=== PATIENT | female | born 1940 | race Caucasian/White ===

== ENCOUNTER → 2017-03-18 | Outpatient (CLI) | payer OTHER ==
[2013-02-11 11:57] VITALS: BP 138/89
--- NOTE | 2017-03-18 14:03 | MG ---
HISTORY: Left breast carcinoma status post mastectomy, no current complaints Right breast digital diagnostic mammography with CAD. Comparison: March 05, 2015 and March 24, 2016 FINDINGS: Cc, MLO, and mL projections of the right breast were obtained. Heterogeneously dense fibroglandular tissue is seen to be present without significant interval change. No suspicious architectural distor tion, mass or clustered microcalcifications can be observed to suggest malignancy. No skin thickenin g or nipple retraction is appreciated. No pathological lymphadenopathy can be identified. Benign-ap pearing calcifications are noted. IMPRESSION: NO RADIOGRAPHIC EVIDENCE OF MALIGNANCY. ACR CATEGORY 2 - benign findings. FOLLOW-UP EXAM 1 YEAR. Diagnostic CAD was utilized and reviewed. * 0 (ZERO) - ASSESSMENT INCOMPLETE; ADDITIONAL IMAGING IS NEEDED. * 1/1 (ONE) - NEGATIVE. * 2/II (TWO) - BENIGN FINDINGS. * 3/III (THREE) - PROBABLY BENIGN FINDING; SHORT INTERVAL FOLLOW-UP SUGGESTED. * 4/IV (FOUR) - SUSPICIOUS ABNORMALITY; BIOPSY SHOULD BE CONSIDERED. * 5/V - HIGHLY SUSPICIOUS OF MALIGNANCY; BIOPSY SHOULD BE PERFORMED. A NEGATIVE X-RAY REPORT SHOULD NOT DELAY BIOPSY IF A DOMINANT OR CLINICALLY SUSPICIOUS MASS IS PRESENT; 4 TO 8 PERCENT OF CANCERS ARE NOT IDENTIFIED BY X-RAY. A NEGA TIVE REPORT MAY REINFORCE THE CLINICAL IMPRESSION. ADENOSIS AND DENSE BREASTS MAY OBSCURE AN UNDERLY ING NEOPLASM. Reported By:
== END ==
LOC: RAD 13:14
PROVIDERS: ATTEND Nurse Practitioner Family
DX: Z85.3 Personal history of malignant neoplasm of breast (principal); Z79.811 Long term (current) use of aromatase inhibitors
CPT/HCPCS: 77065

== ENCOUNTER 2025-04-11 15:11 | Inpatient (IN) ==
--- NOTE | 2025-04-11 15:22 | EKG ---
Test Reason : elevated hr Blood Pressure : */* mmHG Vent. Rate : 154 BPM Atrial Rate : * BPM P-R Int : * ms QRS Dur : 94 ms QT Int : 280 ms P-R-T Axes : * 25 8 degrees QTc Int : 448 ms Atrial fibrillation with rapid ventricular response with premature ventricular or aberrantly conducted complexes Nonspecific ST and T wave abnormality Abnormal ECG No previous ECGs available Confirmed by Miguel Fields MD ([id number]) on 04/11/2025 5:15:39 PM Referred By: Confirmed By: Miguel Fields MD
[2025-04-11 15:27] VITALS: BMI 28.6
[2025-04-11] MEDS: CARDIZEM INJ 50 MG VIAL IVP ONE (15:37)
[2025-04-11] MEDS: NS 1,000 ML IV 1,000 ML IV ONE (15:37)
[2025-04-11 15:49] LABS: INR 1.21 (0.8-1.3)
[2025-04-11 15:56] LABS: COR CA(FOR HYPOALB) 9.9 mg/dL (8.5-10.1); COR NA(FOR HYPERGLY) 144.0 mmol/L (136-145); CREATININE 1.22 mg/dL (0.55-1.02); eGFR NON BLACK RACES 45.0 (>60)
--- NOTE | 2025-04-11 15:59 | DR.DIZZY ---
HPI Time seen Time Seen by Provider: 04/11/25 15:17 PCP Primary Care Physician: Melissa Peña NP Complaint Chief Complaint Doctor Comments: 84 yo F, recent surgery on R hip, went to rehab, discharged home last wk, has become increasingly weak at home, unable to get around her house to take care of her self. Lives alone. Found by EMS to have afib with RVR, with HR of 150 bpm. Pt denies cp or palpitations, only complains of weakness and fatigue. Chief Complaint:: EMS was called to patient for weakness and having trouble to get around the house. Patient c/o BLE edema and pain. COVID-19 Coronavirus risk:travel/contact w/high risk person: No Has patient experienced Coronavirus symptoms: No Source History Provided: Patient and EMS Mode of Arrival Mode of Arrival: Ambulatory Timing Onset of Chief Complaint: 04/11/25 Context Stroke Symptoms: None PMH PMH Past Medical History: Yes Past Medical History: Arthritis, Coronary Artery Disease, Hypertension and [place] Past Surgical History: Yes Surgical History: Mastectomy and Tonsillectomy Past Surgical History Comment: varicose veins, bilateral cataracts, breast biopsy, foot operation, left mastectomy Family History History of Family Medical Conditions: Yes Family Medical History: Diabetes Mellitus, Cancer, [place], Coronary Artery Disease and Hypertension Social History Alcohol Use: Occasionally Do you use any recreational Drugs:: No Lives With: Alone Lives Where: Home Travel Risk Coronavirus risk:travel/contact w/high risk person: No Has patient experienced Coronavirus symptoms: No Infectious screening Have you traveled outside the country in the last 6 months?: No Isolation: Standard ROS Review of Systems Constitutional: Malaise and Fatigue All Other Systems: Reviewed and Negative PE Vital Signs Vitals: Vital Signs Temperature 98.1 F Pulse Rate 89 Pulse Rate 92 Pulse Rate 90 Pulse Rate 91 Pulse Rate 89 Pulse Rate 92 Pulse Rate 94 Pulse Rate 93 Pulse Rate 92 Pulse Rate 94 Pulse Rate 93 Pulse Rate 94 Pulse Rate 94 Pulse Rate 93 Pulse Rate 96 Pulse Rate 95 Pulse Rate 93 Pulse Rate 98 Pulse Rate 98 Pulse Rate 168 Pulse Rate 158 Pulse Rate 162 Pulse Rate 160 Pulse Rate 104 Respiratory Rate 22 Respiratory Rate 31 Respiratory Rate 19 Respiratory Rate 14 Respiratory Rate 22 Respiratory Rate 20 Respiratory Rate 23 Respiratory Rate 30 Respiratory Rate 25 Respiratory Rate 24 Respiratory Rate 35 Respiratory Rate 18 Respiratory Rate 21 Respiratory Rate 24 Respiratory Rate 25 Respiratory Rate 26 Respiratory Rate 22 Respiratory Rate 29 Respiratory Rate 28 Respiratory Rate 20 Blood Pressure 121/65 Blood Pressure 127/60 Blood Pressure 122/58 Blood Pressure 137/60 Blood Pressure 123/58 Blood Pressure 113/56 Blood Pressure 107/56 Blood Pressure 111/73 Blood Pressure 120/68 Blood Pressure 120/68 O2 Sat by Pulse Oximetry 98 O2 Sat by Pulse Oximetry 94 O2 Sat by Pulse Oximetry 97 O2 Sat by Pulse Oximetry 97 O2 Sat by Pulse Oximetry 96 O2 Sat by Pulse Oximetry 97 O2 Sat by Pulse Oximetry 99 O2 Sat by Pulse Oximetry 98 O2 Sat by Pulse Oximetry 97 O2 Sat by Pulse Oximetry 98 O2 Sat by Pulse Oximetry 99 O2 Sat by Pulse Oximetry 98 O2 Sat by Pulse Oximetry 91 O2 Sat by Pulse Oximetry 98 O2 Sat by Pulse Oximetry 97 O2 Sat by Pulse Oximetry 97 O2 Sat by Pulse Oximetry 96 O2 Sat by Pulse Oximetry 95 O2 Sat by Pulse Oximetry 98 O2 Sat by Pulse Oximetry 98 General Limitations: Other (unkempt, evidence of urinary and fecal incont. Cat hair diffusely on pt. ) Head Head Exam: Normal Inspection Eyes Eye exam: Normal Appearance ENT ENT Exam: Normal Exam, Normal Oropharynx and Normal External Ear Exam Neck Neck Exam: Normal Inspection and Full ROM Chest Chest Inspection: Normal Inspection Respiratory Respiratory Exam: Normal Lung Sounds Bilat Cardiovascular Cardiovascular Exam: Tachycardia, Irregular Rhythm and Other (afib with RVR, rate 150-170 bpm) Abdominal Exam Abdominal Exam: Normal Inspection, Normal Bowel Sounds and Soft Rectal Rectal Exam: Deferred Extremeties Extremities Exam: Normal Inspection and Full ROM Back Back Exam: Normal Inspection and Full ROM Neurologic Neurological Exam: Alert and Oriented X3 Psychiatric Psychiatric Exam: Normal Affect and Normal Mood Skin Skin Exam: Warm, Dry, Intact and Normal Color ROR Labs Reviewed 04/11/25 15:27 04/11/25 15:27 Laboratory: WBC 19.0 X10^3/uL (3.6-10.0) H 04/11/25 15:27 RBC 3.82 X10^6/uL (3.5-5.4) 04/11/25 15:27 Hgb 12.1 g/dL (12.0-16.0) 04/11/25 15:27 Hct 36.0 % (36.0-47.0) 04/11/25 15:27 MCV 94.2 fL (80.0-100.0) 04/11/25 15: MCH 31.6 pg (27.0-34.0) 04/11/25 15: MCHC 33.5 g/dL (33.0-35.0) 04/11/25 15: RDW 14.9 % (11.6-16.5) 04/11/25 15: Plt Count 151 X10^3/uL (150.0-450.0) 04/11/25 15: MPV 10.1 fL (7.4-11.0) 04/11/25 15: Neut % (Auto) 86.8 % (42.0-75.0) H 04/11/25 15: Lymph % (Auto) 5.1 % (21.0-51.0) L 04/11/25 15: [place] % (Auto) 7.8 % (0.0-13.0) 04/11/25 15: Eos % (Auto) 0.1 % (0.9-2.9) L 04/11/25 15: Baso % (Auto) 0.2 % (0.2-1.0) 04/11/25 15:27 Neut # (Auto) 16.5 x10^3/uL (2.2-4.8) H 04/11/25 15: Lymph # (Auto) 1.0 X10^3/uL (1.3-2.9) L 04/11/25 15:27 [place] # (Auto) 1.5 x10^3/uL (0.3-0.8) H 04/11/25 15: Eos # (Auto) 0.0 x10^3/uL (0.0-0.2) 04/11/25 15:27 Baso # (Auto) 0.0 X10^3/uL (0.0-0.1) 04/11/25 15: Absolute Nucleated RBC 0.1 /100WBC 04/11/25 15: PT 15.4 SECONDS (11.8-14.3) 04/11/25 15: INR Target Range - 04/11/25 15: INR 1.21 (0.8-1.3) 04/11/25 15: APTT 29.4 SECONDS (22.9-36.5) 04/11/25 15:27 PTT Comment - 04/11/25 15:27 Sodium 143 mmol/L (136-145) 04/11/25 15:27 Corrected Sodium 144 mmol/L (136-145) 04/11/25 15:27 Potassium 3.5 mmol/L (3.5-5.1) 04/11/25 15: Chloride 107 mmol/L (98-107) 04/11/25 15: Carbon Dioxide 25.2 mmol/L (21-32) 04/11/25 15:27 BUN 26 mg/dL (7-18) H 04/11/25 15: Creatinine 1.22 mg/dL (0.55-1.02) H 04/11/25 15:27 Est GFR (MDRD) Af Amer 54 (>60) L 04/11/25 15:27 Est GFR (MDRD) Non-Af 45 (>60) L 04/11/25 15: Glucose 125 mg/dL (65-99) H 04/11/25 15:27 Calcium 8.5 mg/dL (8.5-10.1) 04/11/25 15:27 Corrected Calcium 9.9 mg/dL (8.5-10.1) 04/11/25 15: Magnesium 1.8 mg/dL (2.0-2.9) L 04/11/25 15: Total Bilirubin 1.70 mg/dL (0.2-1.0) H 04/11/25 15:27 AST 18 Units/L (15-37) 04/11/25 15:27 ALT 10 Units/L (12-78) L 04/11/25 15:27 Alkaline Phosphatase 204 Units/L (46-116) H 04/11/25 15:27 Creatine Kinase 47 Units/L (26-192) 04/11/25 15:27 Troponin I High Sens 26.4 ng/L (4.0-60.0) 04/11/25 15: B-Natriuretic Peptide 157 pg/mL (0-79) H 04/11/25 15:27 Total Protein 6.0 g/dL (6.4-8.2) L 04/11/25 15:27 Albumin 2.3 g/dL (3.4-5.0) L 04/11/25 15:27 Globulin 3.7 g/dL (2.5-4.5) 04/11/25 15: Albumin/Globulin Ratio 0.6 Ratio (1.1-2.1) L 04/11/25 15:27 Specimen Type Clean catch urine 04/11/25 18:02 Urine Color Dark yellow (YELLOW) 04/11/25 18:02 Urine Appearance Hazy (CLEAR) 04/11/25 18:02 Urine pH 5.0 (5.0 - 8.0) 04/11/25 18:02 Ur Specific [place] 1.025 (1.000-1.030) 04/11/25 18: Urine Protein 2+ (NEGATIVE) 04/11/25 18: Urine Glucose (UA) Negative (NEGATIVE) 04/11/25 18: Urine Ketones 1+ (NEGATIVE) 04/11/25 18:02 Urine Blood 1+ (NEGATIVE) 04/11/25 18: Urine Nitrite Negative (NEGATIVE) 04/11/25 18: Urine Bilirubin 1+ (NEGATIVE) 04/11/25 18:02 Urine Urobilinogen 2+ (NORMAL) 04/11/25 18:02 Ur Leukocyte Esterase 2+ (NEGATIVE) 04/11/25 18:02 Urine RBC 5-10 /HPF (0-3) A 04/11/25 18:02 Urine WBC 5-10 /HPF (0-5) A 04/11/25 18:02 Ur Squamous Epith Cells Few /HPF (NEGATIVE) 04/11/25 18:02 Amorphous Sediment 1+ /HPF (NEGATIVE) 04/11/25 18:02 Urine Bacteria Trace /HPF (NEGATIVE) 04/11/25 18:02 Ur Culture Indicated? Yes/culture set up 04/11/25 18:02 Opioid Opioid Risk Tool Age (Adonis box if 16-45): No History of Preadolescent Sexual Abuse: No Total: 0 Total Score Risk Category: Low Risk Copyright: Caleb ROUSE predicting aberrant behaviors Discharge Plan Diagnosis Discharge Problem: Atrial fibrillation, new onset, Atrial fibrillation with rapid ventricular response, Acute UTI, Adult failure to thrive Discharge Plan Patient Disposition: 09 ADMITTED INPATIENT Condition: Stable Prescriptions: No Action losartan 25 mg tablet 25 mg PO QDAY Qty: 30 3RF famotidine 20 mg Tablet 20 mg PO BID metoprolol succinate 25 mg Tablet Extended Release 24 Hr 25 mg PO QDAY celecoxib 100 mg capsule 100 mg PO QDAY Health Concerns: Post Hospitalization: new medications and changes needed to prevent readmission or further decline. Pt educated and given instructions on all concerns. Plan of Treatment: Continue with present treatment and follow up plan. Pt is to keep follow up appointment as instructed and take medications as ordered. Orders to Discharge Patient Discharge Orders: Transfer (Routine); Ordered 04/11/25 Ordered By: Anand Sosa Follow ups/Referrals Follow ups/Referrals: IVONNE LUEVANO [Primary Care Provider, MEDICAL] - 3 days Instructions Stand Alone Forms: Find Help Web Site, Post Hospital Follow Up Care Print Language: FILIPINO
[2025-04-11 16:07] LABS: MEAN PLATELET VOLUME 10.1 fL (7.4-11.0); RED CELL DISTRIBUTION WIDTH 14.9 % (11.6-16.5)
--- NOTE | 2025-04-11 16:15 | RAD ---
EXAM: CHEST, 1 VIEW HISTORY: Shortness of Breath; COMPARISON: No relevant prior studies were available for comparison at the time of interpretation. TECHNIQUE: CHEST, 1 VIEW FINDINGS: Chest: Lines and tubes: Cardiac leads overlie the chest. Mediastinum: Cardiomegaly. Pulmonary vessels: There is pulmonary vascular congestion. Lung maldonado: No suspicious airspace opacity. Pleura: No effusion. No pneumothorax. Bones and soft tissues: No acute osseous or soft tissue abnormality. IMPRESSION: 1. Increased volume status THIS IS AN ELECTRONICALLY VERIFIED FINAL REPORT 04/11/2025 4:03 PM - Electronically signed by Steve Johnson MD
[2025-04-11] MEDS: CORDARONE INJ 150 MG VIAL IVP ONE (16:18)
[2025-04-11 18:08] LABS: BLOOD/HEMOGLOBIN,URINE 1+ (NEGATIVE); LEUKOCYTE ESTERASE ,URINE 2+ (NEGATIVE); NITRITES,URINE NEGATIVE (NEGATIVE)
[2025-04-11 18:11] LABS: APPEARANCE,URINE HAZY (CLEAR)
[2025-04-11 18:15] LABS: SQUAMOUS EPITHELIAL CELL,UR FEW /HPF (NEGATIVE)
[2025-04-11] MEDS: ROCEPHIN VIAL 1 GRAM 1 G in NS 100 ML IV 100 ML IV ONE (19:40)
[2025-04-11] MEDS: CARDIZEM INJ 125 MG VIAL 125 MG in NS 100 ML IV 100 ML IV PRN (19:55)
[2025-04-11] MEDS ORDERED: TYLENOL 325 MG TAB PO PRN (20:39)
[2025-04-11] MEDS ORDERED: ZOFRAN TAB 4 MG PO PRN (20:39)
[2025-04-11] MEDS ORDERED: MORPHINE SULFATE INJ 2 MG INJ IVP PRN (20:39)
[2025-04-11] MEDS: CARDIZEM INJ 50 MG VIAL ONE (20:41)
[2025-04-11] MEDS: CARDIZEM INJ 125 MG VIAL ONE (20:42)
[2025-04-11] MEDS: NS 1,000 ML IV 1,000 ML ONE (20:42)
[2025-04-11] MEDS: NS 100 ML IV 100 ML ONE (20:42)
[2025-04-11] MEDS: CONSULT PHARMACY - POTASSIUM & MAGNESIUM XX SCH (21:59)
[2025-04-11] MEDS: NS 1,000 ML IV 1,000 ML IV SCH (22:12)
[2025-04-11] MEDS: PEPCID TAB 20 MG PO SCH (22:12)
[2025-04-11] MEDS: ELIQUIS PO SCH (22:13)
[2025-04-11] MEDS: K-DUR TAB 20 MEQ PO SCH (22:13)
[2025-04-11] MEDS: MAG-OX TAB PO SCH (22:13)
[2025-04-11] MEDS: ZOFRAN INJ 4 MG VIAL IVP PRN (22:22)
[2025-04-12 05:07] LABS: MEAN PLATELET VOLUME 9.3 fL (7.4-11.0); RED CELL DISTRIBUTION WIDTH 14.7 % (11.6-16.5)
[2025-04-12 05:20] LABS: COR CA(FOR HYPOALB) 9.7 mg/dL (8.5-10.1); CREATININE 0.93 mg/dL (0.55-1.02); eGFR NON BLACK RACES > 60 (>60)
[2025-04-12] MEDS: ULTRAM PO PRN (06:55)
[2025-04-12] MEDS: CONSULT PHARMACY - POTASSIUM & MAGNESIUM XX SCH (08:36)
[2025-04-12] MEDS ORDERED: CELEBREX PO SCH (09:00)
[2025-04-12] MEDS ORDERED: PATIENT'S HOME MEDICATION (Losartan 25 mg tablet) PO SCH (09:00)
[2025-04-12] MEDS: COLACE CAP 100 MG PO SCH (09:47)
[2025-04-12] MEDS: TOPROL XL PO SCH (09:47)
[2025-04-12] MEDS: K-DUR TAB 20 MEQ PO SCH (09:47)
[2025-04-12] MEDS: COZAAR PO SCH (09:47)
[2025-04-12] MEDS: MAG-OX TAB PO SCH (09:47)
[2025-04-12] MEDS: ROCEPHIN VIAL 1 GRAM 1 G in NS 100 ML IV 100 ML IV SCH (09:48)
[2025-04-12] MEDS: LASIX IVP ONE (09:48)
[2025-04-12] MEDS: NS 100 ML IV 100 ML ONE (10:26)
--- NOTE | 2025-04-12 12:39 | DR.CONSULT ---
CONSULT Consultation for Day of: Date: 04/12/25 Chief Complaint Chief Complaint: fatigue/weak Allergies Allergies Allergy/AdvReac Type Severity Reaction Status Date / Time Latex, Natural Rubber AdvReac Verified 04/11/25 15:16 History of Present Illness History of Present Illness: 84 yo female- recent hip surgery- was weak at home- came to ER: rafib- given iv amio and iv cardizem and converted( was on BB chronically)- now in nsr- still fels weak- home alone Past Medical History Past Medical History: Arthritis, Coronary Artery Disease, Hypertension and [place] Past Surgical History Surgical History: Mastectomy, Ortho Surgery, Tonsillectomy and Other Family History Family Medical History: Diabetes Mellitus, Cancer, [place], Coronary Artery Disease and Hypertension Social History Alcohol Use: Occasionally Drug Use: None Medications Home Medications: Latex, Natural Rubber Adverse Reaction (Verified 04/11/25 15:16) CONTINUE taking the following medications celecoxib 100 mg capsule 100 mg PO QDAY 04/11/25 [History] famotidine 20 mg tablet 20 mg PO BID 04/11/25 [History] metoprolol succinate 25 mg tablet,extended release 24 hr 25 mg PO QDAY 04/11/25 [History] Physical Exam Vital Signs: Vital Signs Temperature 98.1 F Pulse Rate 78 Pulse Rate 90 Pulse Rate 91 Pulse Rate 85 Pulse Rate 88 Pulse Rate 85 Pulse Rate 84 Pulse Rate 86 Respiratory Rate 24 Respiratory Rate 31 Respiratory Rate 32 Respiratory Rate 31 Respiratory Rate 28 Respiratory Rate 18 Respiratory Rate 25 Respiratory Rate 28 Blood Pressure 119/80 Blood Pressure 114/68 Blood Pressure 108/60 Blood Pressure 124/71 Blood Pressure 111/67 Blood Pressure 106/66 Blood Pressure 105/60 O2 Sat by Pulse Oximetry 95 O2 Sat by Pulse Oximetry 94 O2 Sat by Pulse Oximetry 97 O2 Sat by Pulse Oximetry 92 O2 Sat by Pulse Oximetry 93 O2 Sat by Pulse Oximetry 91 O2 Sat by Pulse Oximetry 92 alert ox3 nad clear lungs rrr 2/6 barry mild edema calves labs: hct 31 tsh 6/24 ok albumin 1.9 bnp 150 cxr: increased volume echo: lvh/good lv/ mod /mild MR pa 60 Plan (1) Atrial fibrillation with rapid ventricular response: Status: Acute Narrative Support Text: back in NSR - BB dose upped- on doac- follow- if recurrence: add amiodorone (2) Aortic stenosis: Status: Acute Narrative Support Text: max grad 20 luisito 1.3 cm2 est (3) Pulmonary hypertension: Status: Acute Narrative Support Text: 60 (4) Fatigue: Status: None
[2025-04-12] MEDS: NORCO 5/325 MG TAB PO PRN (16:30)
[2025-04-12 17:58] LABS: CRYPTOSPORIDIUM PARVUM ANTIGEN NEGATIVE (NEGATIVE); GIARDIA LAMBLIA ANTIGEN NEGATIVE (NEGATIVE)
[2025-04-12] MEDS: NEXTERONE IV 150 MG PREMIX* 150 MG/100 ML BAG IV ONE (18:30)
[2025-04-12] MEDS: NEXTERONE IV 360 MG PREMIX* 360 MG/200 ML BAG IV PRN (18:57)
[2025-04-12] MEDS: DRUG FILTER EXTENSION SET ONE (21:02)
[2025-04-13] MEDS: NEXTERONE IV 360 MG PREMIX* 360 MG/200 ML BAG IV PRN
[2025-04-13 06:10] LABS: MEAN PLATELET VOLUME 9.3 fL (7.4-11.0); RED CELL DISTRIBUTION WIDTH 14.6 % (11.6-16.5)
[2025-04-13] MEDS: CORDARONE TAB 200 MG PO SCH (06:13)
[2025-04-13 06:31] LABS: COR CA(FOR HYPOALB) 10.1 mg/dL (8.5-10.1); CREATININE 1.25 mg/dL (0.55-1.02); TSH (3RD GENERATION) 1.317 uIU/mL (0.358-3.74); eGFR NON BLACK RACES 44 (>60)
[2025-04-13] MEDS: PEPCID TAB 20 MG PO SCH (09:01)
[2025-04-14 06:08] LABS: MEAN PLATELET VOLUME 9.1 fL (7.4-11.0); RED CELL DISTRIBUTION WIDTH 14.8 % (11.6-16.5)
[2025-04-14 06:14] LABS: COR CA(FOR HYPOALB) 10.2 mg/dL (8.5-10.1); CREATININE 1.03 mg/dL (0.55-1.02); eGFR NON BLACK RACES 54 (>60)
[2025-04-14] MEDS: CORDARONE TAB 200 MG PO ONE (09:28)
[2025-04-14] MEDS: TOPROL XL PO ONE (09:28)
--- NOTE | 2025-04-14 15:15 | NOTE.SOAP ---
Soap Note Note for Day of Date of Exam: 04/14/25 Subjective Data Subjective Data: Patient seen with nurse for daily rounds. Heart rate had done well until early this morning. Jumps up to 120. She denies any palpitations but does feel more tired. Tolerating diet without difficulty. No other events overnight. Objective Data Objective Data: Well-developed, well-nourished, elderly female in no acute distress. Hearing intact conversation, head NCAT. Heart irregularly, irregular with no murmur. Lungs clear with strong speech. Mood and affect appropriate. Assessment Assessment: Persistent atrial fibrillation UTI with Klebsiella oxytoca UTI with Proteus mirabilis Diffuse weakness Plan Plan: Increase amiodarone and metoprolol. Continue IV abx, cultures should allow switch to PO at discharge.
[2025-04-14] MEDS: CORDARONE TAB 200 MG PO SCH (16:18)
[2025-04-15 06:57] LABS: MEAN PLATELET VOLUME 8.4 fL (7.4-11.0); RED CELL DISTRIBUTION WIDTH 14.5 % (11.6-16.5)
[2025-04-15 07:19] LABS: COR CA(FOR HYPOALB) 10.6 mg/dL (8.5-10.1); CREATININE 0.87 mg/dL (0.55-1.02); eGFR NON BLACK RACES > 60 (>60)
[2025-04-15] MEDS: TOPROL XL PO ONE (08:59)
[2025-04-15] MEDS: TOPROL XL PO SCH (08:59)
--- NOTE | 2025-04-15 13:02 | NOTE.SOAP ---
Soap Note Note for Day of Date of Exam: 04/15/25 Subjective Data Subjective Data: Patient seen with nurse for daily rounds. Heart rate now in the 60s. Blood pressure little lower but still okay. She denies any symptoms today. Labs remained stable. Objective Data Objective Data: Elderly female in no acute distress eating breakfast. She is sitting up in her bed. Heart irregularly, irregular without tachycardia. Lungs clear with strong speech. Mood and affect are appropriate. Assessment Assessment: Afib w/ RVR K oxytoca UTI P mirabilis UTI Anemia of chronic disease Plan Plan: May need subacute rehab versus placement with friends/family. Anticipate being able to discharge on p.o. antibiotics with continued p.o. antiarrhythmics in the next 48-72 hours.
[2025-04-16 05:59] LABS: MEAN PLATELET VOLUME 8.1 fL (7.4-11.0); RED CELL DISTRIBUTION WIDTH 14.4 % (11.6-16.5)
[2025-04-16 06:08] LABS: COR CA(FOR HYPOALB) 10.4 mg/dL (8.5-10.1); CREATININE 0.77 mg/dL (0.55-1.02); eGFR NON BLACK RACES > 60 (>60)
[2025-04-16] MEDS ORDERED: CONSULT PHARMACY - POTASSIUM & MAGNESIUM XX SCH (07:00)
[2025-04-16] MEDS ORDERED: TOPROL XL PO ONE (07:56)
[2025-04-16] MEDS: K-DUR TAB 20 MEQ PO ONE (08:11)
--- NOTE | 2025-04-16 10:01 | EKG ---
Test Reason : HX OF AFIB Blood Pressure : */* mmHG Vent. Rate : 70 BPM Atrial Rate : 70 BPM P-R Int : 154 ms QRS Dur : 88 ms QT Int : 440 ms P-R-T Axes : 50 45 45 degrees QTc Int : 475 ms Sinus rhythm with premature atrial complexes Otherwise normal ECG When compared with ECG of 11-APR-2025 15:21, Sinus rhythm has replaced Atrial fibrillation Vent. rate has decreased BY 84 BPM Non-specific change in ST segment in Anterior leads Nonspecific T wave abnormality no longer evident in Anterior leads Confirmed by Miguel Fields MD ([id number]) on 04/16/2025 11:08:18 AM Referred By: Confirmed By: Miguel Fields MD
[2025-04-16] MEDS: COLACE CAP 100 MG PO SCH (20:48)
[2025-04-17 05:41] LABS: MEAN PLATELET VOLUME 7.8 fL (7.4-11.0); RED CELL DISTRIBUTION WIDTH 14.7 % (11.6-16.5)
[2025-04-17 05:57] LABS: COR CA(FOR HYPOALB) 10.4 mg/dL (8.5-10.1); CREATININE 0.72 mg/dL (0.55-1.02); eGFR NON BLACK RACES > 60 (>60)
[2025-04-17] MEDS ORDERED: TOPROL XL PO ONE (08:26)
--- NOTE | 2025-04-17 09:34 | RAD ---
EXAM: CHEST, PA/LAT ADULT HISTORY: COUGH, SOB; COMPARISON: No relevant prior studies were available for comparison at the time of interpretation. TECHNIQUE: CHEST, PA/LAT ADULT FINDINGS: Chest: Lines and tubes: Cardiac leads overlie the chest. Mediastinum: Cardiomegaly. There is a hiatus hernia Pulmonary vessels: There is pulmonary vascular congestion. Lung maldonado: Patchy opacities are seen Pleura: Bilateral pleural effusions Bones and soft tissues: No acute osseous or soft tissue abnormality. IMPRESSION: 1. Findings suggest heart failure exacerbation versus pneumonia THIS IS AN ELECTRONICALLY VERIFIED FINAL REPORT 04/17/2025 9:31 AM - Electronically signed by Steve Johnson MD
[2025-04-17 12:04] VITALS: BP 148/72; PULSE 66; RESP 20; TEMP 98.3; O2SAT 96
--- NOTE | 2025-04-17 13:33 | DR.H&P ---
H&P History & Physical for Day of: H&P Date: 04/11/25 Chief Complaint Chief Complaint: WEAKNESS History of Present Illness History of Present Illness: PT IS 84 WF, ER ADMISSION HOME HEALTH NURSE REPORTS PT WAS EXTREMELY WEAK WITH TACHYCARDIA AND POOR LIVING CONDITIONS. PT'S HOME HEALTH NURSE CALLED [facility]. PT WAS IN AFIB WITH RVR ON ARRIVAL TO ER. PT WAS RECENTLY DC FROM REHAB THERAPY FOLLOW A RIGHT HIP FRACTURE REPAIR. PT ADMITTED FOR EVALUATION AND TREATMENT OF ACUTE ILLNESS. Past Medical History Past Medical History: Arthritis, Coronary Artery Disease, Hypertension and [place] Past Surgical History Surgical History: Mastectomy, Ortho Surgery, Tonsillectomy and Other Family History Family Medical History: Diabetes Mellitus, Cancer, [place], Coronary Artery Disease and Hypertension Social History Alcohol Use: Occasionally Drug Use: None Medications Home Medications: Home Medications Medication Instructions Recorded Confirmed Type celecoxib 100 mg capsule 100 mg PO QDAY 04/11/2503/24 History famotidine 20 mg tablet 20 mg PO BID 04/11/25 History metoprolol succinate 25 mg 25 mg PO QDAY 04/11/2503/24 History tablet,extended release 24 hr Allergies Allergies Allergy/AdvReac Type Severity Reaction Status Date / Time Latex, Natural Rubber AdvReac Verified 04/11/25 15:16 Labs 04/17/25 05:16 04/17/25 05:16 Labs: 04/11/25 18:02 Urine,Clean Catch Urine Culture - Preliminary Laboratory WBC 17.0 X10^3/uL (3.6-10.0) H 04/12/25 04:46 RBC 3.33 X10^6/uL (3.5-5.4) L 04/12/25 04:46 Hgb 10.4 g/dL (12.0-16.0) L 04/12/25 04:46 Hct 31.2 % (36.0-47.0) L 04/12/25 04:46 MCV 93.8 fL (80.0-100.0) 04/12/25 04:46 MCH 31.3 pg (27.0-34.0) 04/12/25 04:46 MCHC 33.3 g/dL (33.0-35.0) 04/12/25 04:46 RDW 14.7 % (11.6-16.5) 04/12/25 04:46 Plt Count 140 X10^3/uL (150.0-450.0) L 04/12/25 04:46 MPV 9.3 fL (7.4-11.0) 04/12/25 04:46 Neut % (Auto) 86.4 % (42.0-75.0) H 04/12/25 04:46 Lymph % (Auto) 5.4 % (21.0-51.0) L 04/12/25 04:46 [place] % (Auto) 8.0 % (0.0-13.0) 04/12/25 04:46 Eos % (Auto) 0.1 % (0.9-2.9) L 04/12/25 04:46 Baso % (Auto) 0.1 % (0.2-1.0) L 04/12/25 04:46 Neut # (Auto) 14.7 x10^3/uL (2.2-4.8) H 04/12/25 04:46 Lymph # (Auto) 0.9 X10^3/uL (1.3-2.9) L 04/12/25 04:46 [place] # (Auto) 1.4 x10^3/uL (0.3-0.8) H 04/12/25 04:46 Eos # (Auto) 0.0 x10^3/uL (0.0-0.2) 04/12/25 04:46 Baso # (Auto) 0.0 X10^3/uL (0.0-0.1) 04/12/25 04:46 Absolute Nucleated RBC 0.1 /100WBC 04/12/25 04:46 PT 15.4 SECONDS (11.8-14.3) 04/11/25 15:27 INR Target Range - 04/11/25 15:27 INR 1.21 (0.8-1.3) 04/11/25 15:27 APTT 29.4 SECONDS (22.9-36.5) 04/11/25 15:27 PTT Comment - 04/11/25 15:27 Sodium 142 mmol/L (136-145) 04/12/25 04:46 Corrected Sodium TNP 04/12/25 04:46 Potassium 3.8 mmol/L (3.5-5.1) 04/12/25 04:46 Chloride 109 mmol/L (98-107) H 04/12/25 04:46 Carbon Dioxide 23.6 mmol/L (21-32) 04/12/25 04:46 BUN 26 mg/dL (7-18) H 04/12/25 04:46 Creatinine 0.93 mg/dL (0.55-1.02) 04/12/25 04:46 Est GFR (MDRD) Af Amer > 60 (>60) 04/12/25 04:46 Est GFR (MDRD) Non-Af > 60 (>60) 04/12/25 04:46 Glucose 91 mg/dL (65-99) 04/12/25 04:46 Calcium 8.0 mg/dL (8.5-10.1) L 04/12/25 04:46 Corrected Calcium 9.7 mg/dL (8.5-10.1) 04/12/25 04:46 Magnesium 1.9 mg/dL (2.0-2.9) L 04/12/25 04:46 Total Bilirubin 1.10 mg/dL (0.2-1.0) H 04/12/25 04:46 AST 17 Units/L (15-37) 04/12/25 04:46 ALT 6 Units/L (12-78) L 04/12/25 04:46 Alkaline Phosphatase 169 Units/L (46-116) H 04/12/25 04:46 Creatine Kinase 47 Units/L (26-192) 04/11/25 15:27 Troponin I High Sens 26.4 ng/L (4.0-60.0) 04/11/25 15:27 B-Natriuretic Peptide 146 pg/mL (0-79) H 04/12/25 04:46 Total Protein 5.2 g/dL (6.4-8.2) L 04/12/25 04:46 Albumin 1.9 g/dL (3.4-5.0) L 04/12/25 04:46 Globulin 3.3 g/dL (2.5-4.5) 04/12/25 04:46 Albumin/Globulin Ratio 0.6 Ratio (1.1-2.1) L 04/12/25 04:46 Specimen Type Clean catch urine 04/11/25 18:02 Urine Color Dark yellow (YELLOW) 04/11/25 18:02 Urine Appearance Hazy (CLEAR) 04/11/25 18:02 Urine pH 5.0 (5.0 - 8.0) 04/11/25 18:02 Ur Specific [place] 1.025 (1.000-1.030) 04/11/25 18:02 Urine Protein 2+ (NEGATIVE) 04/11/25 18:02 Urine Glucose (UA) Negative (NEGATIVE) 04/11/25 18:02 Urine Ketones 1+ (NEGATIVE) 04/11/25 18:02 Urine Blood 1+ (NEGATIVE) 04/11/25 18:02 Urine Nitrite Negative (NEGATIVE) 04/11/25 18: Urine Bilirubin 1+ (NEGATIVE) 04/11/25 18:02 Urine Urobilinogen 2+ (NORMAL) 04/11/25 18:02 Ur Leukocyte Esterase 2+ (NEGATIVE) 04/11/25 18:02 Urine RBC 5-10 /HPF (0-3) A 04/11/25 18:02 Urine WBC 5-10 /HPF (0-5) A 04/11/25 18:02 Ur Squamous Epith Cells Few /HPF (NEGATIVE) 04/11/25 18:02 Amorphous Sediment 1+ /HPF (NEGATIVE) 04/11/25 18:02 Urine Bacteria Trace /HPF (NEGATIVE) 04/11/25 18:02 Ur Culture Indicated? Yes/culture set up 04/11/25 18:02 Review of Systems Constitutional: Weakness Eyes: No Symptoms Reported ENT: No Symptoms Reported Respiratory: No Symptoms Reported Cardiovascular: Palpitations and Edema Gastrointestinal: Nausea and Other (LOSS OF APPETITE) Genitourinary: Frequency and Incontinence Musculoskeletal: Back Pain and Leg Pain Skin: No Symptoms Reported Neurological: Weakness Physical Exam Vital Signs: Vital Signs Temperature 98.1 F Pulse Rate 78 Pulse Rate 90 Pulse Rate 91 Pulse Rate 85 Pulse Rate 88 Pulse Rate 85 Pulse Rate 84 Pulse Rate 86 Respiratory Rate 24 Respiratory Rate 31 Respiratory Rate 32 Respiratory Rate 31 Respiratory Rate 28 Respiratory Rate 18 Respiratory Rate 25 Respiratory Rate 28 Blood Pressure 119/80 Blood Pressure 114/68 Blood Pressure 108/60 Blood Pressure 124/71 Blood Pressure 111/67 Blood Pressure 106/66 Blood Pressure 105/60 O2 Sat by Pulse Oximetry 95 O2 Sat by Pulse Oximetry 94 O2 Sat by Pulse Oximetry 97 O2 Sat by Pulse Oximetry 92 O2 Sat by Pulse Oximetry 93 O2 Sat by Pulse Oximetry 91 O2 Sat by Pulse Oximetry 92 Oriented: Normal Eyes: Normal Nose: Normal Throat: Dry Respiratory: RML Diminished and LML Diminished Cardiovascular: Tachycardia and Edema : Dysuria Auscultation: Bowel Sounds: Normal Palpation: Normal Tenderness: Epigastric and Mild Skin: Decreased [place]urgur Musculoskeletal: Motor Deficit and Instability Psychiatric: Depression Mood Description: Depressed Affect: Depressed and Normal Speech Pattern: Clear and Appropriate Assessment/Plan (1) Atrial fibrillation with rapid ventricular response: Status: Acute Plan: ADMIT, ICU, CARDIZEM DRIP CONSULT DR ALSA BP CONTROL, UC, IV ATBX THERAPY (2) Adult failure to thrive: Status: Acute (3) Acute UTI: Status: Acute (4) Hypertension: Status: None
== END 2025-04-17 13:55 | DRG 309 ==
LOC: ER 15:11 → ICU 19:39 → MED/SURG 04-13 15:17
PROVIDERS: ADMIT Obstetrics & Gynecology Obstetrics; ATTEND Internal Medicine
DX: Z74.2 Need for assistance at home and no other household member able to render care; I34.0 Nonrheumatic mitral (valve) insufficiency; Z60.2 Problems related to living alone; H91.8X9 Other specified hearing loss, unspecified ear; Z16.11 Resistance to penicillins; I25.2 Old myocardial infarction; Z91.81 History of falling; Z66 Do not resuscitate; I50.9 Heart failure, unspecified; R06.02 Shortness of breath; Z98.890 Other specified postprocedural states; R26.81 Unsteadiness on feet; R53.83 Other fatigue; B96.89 Other specified bacterial agents as the cause of diseases classified elsewhere; N39.0 Urinary tract infection, site not specified; R26.2 Difficulty in walking, not elsewhere classified; I27.20 Pulmonary hypertension, unspecified; Z16.39 Resistance to other specified antimicrobial drug; Z87.81 Personal history of (healed) traumatic fracture; I35.0 Nonrheumatic aortic (valve) stenosis; R62.7 Adult failure to thrive; I25.10 Atherosclerotic heart disease of native coronary artery without angina pectoris; I48.91 Unspecified atrial fibrillation; M19.90 Unspecified osteoarthritis, unspecified site; B96.4 Proteus (mirabilis) (morganii) as the cause of diseases classified elsewhere